=== PATIENT | female | born 1950 | race Caucasian/White ===

== ENCOUNTER 2018-02-22 16:46 | Outpatient (CLI) | payer MEDICARE, OTHER | END 2018-02-22 16:47 | disposition critical access hospital (66) | LOC: EMS 16:46 | PROVIDERS: ATTEND Surgery | DX: R51 Headache (principal) | CPT/HCPCS: A0425; A0429 ==

== ENCOUNTER 2018-02-22 17:04 | Emergency (ER) | payer MEDICARE, OTHER ==
[2018-02-22 17:53] LABS: BASOPHILS # (AUTO) 0.1 10^3/uL (0.0-0.1); BASOPHILS % (AUTO) 0.8 %; EOSINOPHILS # (AUTO) 0.2 10^3/uL (0.0-0.7); EOSINOPHILS % (AUTO) 2.6 %; HGB - HEMOGLOBIN 12.7 g/dL (12.0-16.0); LYMPHOCYTES # (AUTO) 1.6 10^3/uL (1.5-3.5); LYMPHOCYTES % (AUTO) 18.8 %; MEAN CORPUSCULAR HGB CONC 32.6 g/dL (32.0-36.0); MEAN CORPUSCULAR VOLUME 98.2 fL (81.0-99.0); MEAN PLATELET VOLUME 7.8 fL (7.9-10.8); MONOCYTES # (AUTO) 0.8 10^3/uL (0.0-1.0); MONOCYTES % (AUTO) 9.3 %; NEUTROPHILS # (AUTO) 5.8 10^3/uL (1.5-6.6); NEUTROPHILS % (AUTO) 68.5 %; PLT - PLATELET COUNT 212 10^3/uL (130-450); RED BLOOD COUNT 3.97 10^6/uL (4.20-5.40); RED CELL DISTRIBUTION WIDTH 12.7 % (12.0-15.0); WHITE BLOOD COUNT 8.4 x10^3/uL (4.8-10.8)
[2018-02-22] MEDS: diphenhydrAMINE INJ 50 MG/ML VIAL IVP STA (18:00)
[2018-02-22] MEDS: SODIUM CHLORIDE 0.9% 1,000 ML IV ONE (18:00)
[2018-02-22] MEDS: METOCLOPRAMIDE 10 MG/2 ML VIAL IVP STA (18:01)
[2018-02-22 18:02] LABS: CREATININE 0.9 mg/dL (0.4-1.0)
--- NOTE | 2018-02-22 19:10 | CT Report ---
Reason: headache Procedure Date: 02/22/2018 Accession Number: [id number] / [id number] Procedure: CT - Head W/O CPT Code: FULL RESULT: EXAM: CT HEAD EXAM DATE: 02/22/2018 06:42 PM. CLINICAL HISTORY: Headache. COMPARISON: None. TECHNIQUE: Multiaxial CT images were obtained from the foramen magnum to the vertex. Reformats: Sagittal and coronal. IV contrast: None. In accordance with CT protocol optimization, one or more of the following dose reduction techniques were utilized for this exam: automated exposure control, adjustment of mA and/or KV based on patient size, or use of iterative reconstructive technique. FINDINGS: Parenchyma: No intraparenchymal hemorrhage. No evidence of mass, midline shift, or CT findings of infarction. Mukherjee-white differentiation is distinct. Extraaxial Spaces: Normal for age. No subdural or epidural collections identified. Ventricles: Normal in size and position. Sinuses and Orbits: Imaged paranasal sinuses, orbits, and mastoids show no significant abnormality. Bones: No evidence of fracture or calvarial defect. Other: None. IMPRESSION: No acute intracranial abnormality. RADIA
[2018-02-22] MEDS: MORPHINE 2 MG/ML CARPUJECT IVP STA (19:26)
--- NOTE | 2018-02-22 20:16 | ED Physician Documentation ---
History of Present Illness - Stated complaint Stated Complaint: MIGRAINE - Chief complaint Chief Complaint: General - History obtained from History obtained from: Patient - History of Present Illness Timing: How many days ago (3), Chronic Pain level max: 8 Pain level now: 8 Quality: sharp Radiates to: no Improved by: nothing Worsened by: nothing Associated symptoms: sorethroat - Additonal information Additional information: 68-year-old female with history of headache the past 15 years and followed up by neurologist, hypertension, diabetes, pulmonary fibrosis, throat cancer treated with radiation here with complain of migraine headache and sore throat the past 3 days. Denies any fever, visual changes, nausea or vomiting. Pt stated her headache started due to stress. Her daughter wants them to move to another part of town and this is distressing her. Review of Systems Ten Systems: 10 systems reviewed and negative Constitutional: denies: Fever, Chills, Myalgias Eyes: reports: Photophobia. denies: Loss of vision, Decreased vision Ears: denies: Ear pain Nose: denies: Rhinorrhea / runny nose, Sinus pressure / pain Cardiac: denies: Chest pain / pressure Respiratory: denies: Dyspnea GI: reports: Nausea. denies: Abdominal Pain, Vomiting Skin: denies: Rash Musculoskeletal: denies: Neck pain Neurologic: reports: Headache. denies: Generalized weakness, Focal weakness, Numbness, Difficulty speaking, Near syncope, Syncope, Seizure, Confused, Altered mental status, Head injury, LOC PD PAST MEDICAL HISTORY - Past Medical History Cardiovascular: Hypertension, High cholesterol Respiratory: COPD Neuro: Dementia Endocrine/Autoimmune: HyPOthyroidism Psych: Anxiety Other Past Medical History: Throat Cancer - Past Surgical History General: Appendectomy HEENT: Tonsil/Adenoidectomy - Present Medications Home Medications: Ambulatory Orders Medication Instructions Recorded Confirmed Acetaminophen 02/22/18 Albuterol Sulf [Ventolin Hfa 02/22/18 Inhaler] Buspirone HCl 02/22/18 Carboxymethylcellulose Sodium 02/22/18 [Refresh Tears] Diphenhydramine HCl [Allergy 02/22/18 Medication] Ferrous Sulfate 02/22/18 Fluticasone 44 Mcg [Flovent] 02/22/18 Haloperidol 02/22/18 Hydrocodone/Acetaminophen 1 - 2 each PO Q6H PRN #7 tablet 02/22/18 [Hydrocodon-Acetaminophen 5-325] Isosorbide Dinitrate 02/22/18 LORazepam [Ativan] 02/22/18 Levothyroxine Sodium [Synthroid] 02/22/18 Metoprolol Succinate [Toprol Xl] 02/22/18 Mirtazapine 02/22/18 Nicotine [Nicotine Patch] 02/22/18 Nitroglycerin 02/22/18 Ondansetron [Ondansetron Odt] 02/22/18 Pantoprazole [Protonix] 02/22/18 Pravastatin Sodium [Pravachol] 02/22/18 Risperidone [Risperdal] 02/22/18 Spironolactone 02/22/18 Thiamine [Vitamin B-1] 02/22/18 Topiramate [Topamax] 02/22/18 Verapamil HCl [Calan] 02/22/18 metFORMIN [Glucophage] 02/22/18 raNITIdine [Zantac] 02/22/18 - Allergies Allergies/Adverse Reactions: Allergies Allergy/AdvReac Type Severity Reaction Status Date / Time phenylalanine Allergy Anaphylaxis Verified 02/22/18 17:18 - Social History Does the pt smoke?: No Smoking Status: Never smoker Does the pt drink ETOH?: No Does the pt have substance abuse?: No - Immunizations Immunizations are current?: Yes PD ED PE NORMAL - Vitals Vital signs reviewed: Yes - General General: Alert and oriented X 3, No acute distress, Well developed/nourished - HEENT HEENT: Atraumatic, PERRL, EOMI, Moist mucous membranes, Pharynx benign - Neck Neck: Supple, no meningeal sign - Cardiac Cardiac: RRR, No murmur - Respiratory Respiratory: No respiratory distress, Clear bilaterally - Abdomen Abdomen: Normal bowel sounds, Soft, Non tender, Non distended - Back Back: No CVA TTP - Derm Derm: Normal color, Warm and dry - Extremities Extremities: No deformity - Neuro Neuro: Alert and oriented X 3, 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, No motor deficit, No sensory deficit, Normal speech - Psych Psych: Normal mood, Normal affect Results - Vitals Vitals: Vital Signs - 24 hr 02/22/18 02/22/18 17:06 19:12 Temperature 37.3 C Heart Rate 94 77 Respiratory 18 18 Rate Blood Pressure 100/78 112/72 O2 Saturation 94 95 Oxygen O2 Source Room air - Labs Labs: Laboratory Tests 02/22/18 02/22/18 17:47 17:47 WBC 8.4 RBC 3.97 L Hgb 12.7 Hct 39.0 MCV 98.2 MCH 32.0 H MCHC 32.6 RDW 12.7 Plt Count 212 MPV 7.8 L Neut # (Auto) 5.8 Lymph # (Auto) 1.6 [place] # (Auto) 0.8 Eos # (Auto) 0.2 Baso # (Auto) 0.1 Absolute Nucleated RBC 0.00 Nucleated RBC % 0.0 Sodium 136 Potassium 3.4 L Chloride 98 L Carbon Dioxide 32 Anion Gap 6.0 BUN 13 Creatinine 0.9 Estimated GFR (MDRD) 62 L Glucose 100 Calcium 9.0 PD MEDICAL DECISION MAKING - ED course Complexity details: reviewed results (2011), re-evaluated patient ([id number] requesting for morphine for her pain. She has agreed to wait for the CT brain scan result.), considered differential (Migraine headache, intracranial bleed, CVA, intracranial mass, throat cancer, pharyngitis), d/w patient (2011Patient sitting up in the chair and stated her headache and throat pain is gone and wants to go home with pain medication. She stated that she cannot take NSAIDS due to her stomach issues. She stated that because of the move that she will had to find new primary doctor and oncology.) Departure - Departure Disposition: 01 Home, Self Care Clinical Impression: Throat pain in adult Headache Qualifiers: Headache type: tension-type Headache chronicity pattern: chronic headache Intractability: not intractable Qualified Code(s): G44.229 - Chronic tension- type headache, not intractable Instructions: ED Cephalgia Unspecified Prescriptions: Hydrocodone/Acetaminophen [Hydrocodon-Acetaminophen 5-325] 1 - 2 each PO Q6H PRN #7 tablet PRN Reason: pain Comments: Follow-up with your new primary doctor, neurologist and oncology. Maintain safety while taking narcotic pain medication. Prevent constipation by drinking lots of water and taking [id number] stool softener. If worse return to the emergency room.
[2018-02-22 21:22] VITALS: BP 115/70
== END 2018-02-22 20:18 | disposition home or self-care (01) ==
LOC: ED 17:04
DX: G44.229 Chronic tension-type headache, not intractable (principal); R07.0 Pain in throat; E11.9 Type 2 diabetes mellitus without complications; Z79.84 Long term (current) use of oral hypoglycemic drugs; Z92.3 Personal history of irradiation; C14.0 Malignant neoplasm of pharynx, unspecified; I10 Essential (primary) hypertension; J84.10 Pulmonary fibrosis, unspecified; F03.90 Unspecified dementia, unspecified severity, without behavioral disturbance, psychotic disturbance, mood disturbance, and anxiety; E03.9 Hypothyroidism, unspecified
CPT/HCPCS: 36415; 70450; 80048; 85025; 96361; 96374; 96375; 99283

== ENCOUNTER 2018-04-23 08:00 | Outpatient (CLI) | payer MEDICARE, OTHER | END 2018-04-23 23:59 | disposition home or self-care (01) | LOC: LAB.R 08:00 | PROVIDERS: ATTEND Internal Medicine | DX: J02.9 Acute pharyngitis, unspecified (principal) | CPT/HCPCS: 87070; 87430 ==

== ENCOUNTER 2018-06-18 13:31 | Outpatient (CLI) | payer MEDICARE, OTHER | END 2018-06-18 13:32 | disposition critical access hospital (66) | LOC: EMS 13:31 | PROVIDERS: ATTEND Surgery | DX: R07.0 Pain in throat (principal) | CPT/HCPCS: A0425; A0429 ==

== ENCOUNTER 2018-06-18 13:48 | Emergency (ER) | payer MEDICARE, OTHER ==
--- NOTE | 2018-06-18 13:52 | ED Physician Documentation ---
PD HPI URI - Stated complaint Stated Complaint: THROAT PX - History obtained from History obtained from: Patient - History of Present Illness Timing - onset: How many days ago (1-2) Timing duration: Days Timing details: Abrupt onset, Still present Associated symptoms: Sore throat (history of throat cancer and has pain usually but is much worse the past 2 days without any spitting blood. No fever.), Swollen nodes. No: Fever, Nasal congestion, Rhinorrhea, Dry cough, NVD Similar symptoms before: Has not had sx before Review of Systems Constitutional: reports: Myalgias. denies: Fever Nose: denies: Rhinorrhea / runny nose, Congestion Throat: reports: Sore throat Respiratory: denies: Cough GI: denies: Nausea, Vomiting, Diarrhea Skin: denies: Rash PD PAST MEDICAL HISTORY - Past Medical History Cardiovascular: Hypertension, High cholesterol Respiratory: COPD Neuro: Dementia Endocrine/Autoimmune: HyPOthyroidism Psych: Anxiety - Past Surgical History General: Appendectomy HEENT: Tonsil/Adenoidectomy - Present Medications Home Medications: Ambulatory Orders Medication Instructions Recorded Confirmed Acetaminophen 02/22/18 Albuterol Sulf [Ventolin Hfa 02/22/18 Inhaler] Buspirone HCl 02/22/18 Carboxymethylcellulose Sodium 02/22/18 [Refresh Tears] Diphenhydramine HCl [Allergy 02/22/18 Medication] Ferrous Sulfate 02/22/18 Fluticasone 44 Mcg [Flovent] 02/22/18 Haloperidol 02/22/18 Hydrocodone/Acetaminophen 1 - 2 each PO Q6H PRN #7 tablet 02/22/18 [Hydrocodon-Acetaminophen 5-325] Isosorbide Dinitrate 02/22/18 LORazepam [Ativan] 02/22/18 Levothyroxine Sodium [Synthroid] 02/22/18 Metoprolol Succinate [Toprol Xl] 02/22/18 Mirtazapine 02/22/18 Nicotine [Nicotine Patch] 02/22/18 Nitroglycerin 02/22/18 Ondansetron [Ondansetron Odt] 02/22/18 Pantoprazole [Protonix] 02/22/18 Pravastatin Sodium [Pravachol] 02/22/18 Risperidone [Risperdal] 02/22/18 Spironolactone 02/22/18 Thiamine [Vitamin B-1] 02/22/18 Topiramate [Topamax] 02/22/18 Verapamil HCl [Calan] 02/22/18 metFORMIN [Glucophage] 02/22/18 raNITIdine [Zantac] 02/22/18 Cephalexin [Keflex] 500 mg PO Q6H #20 capsule 06/18/18 Dexamethasone [Decadron] 4 mg PO DAILY #5 tablet 06/18/18 Hydrocodone/Acetaminophen [[place] 1 each PO Q6H PRN #15 tablet 06/18/18 5-325 Tablet] - Allergies Allergies/Adverse Reactions: Allergies Allergy/AdvReac Type Severity Reaction Status Date / Time atorvastatin Allergy Unknown Verified 06/18/18 14:59 azithromycin Allergy Unknown Verified 06/18/18 14:59 doxycycline Allergy Unknown Verified 06/18/18 14:59 phenylalanine Allergy Anaphylaxis Verified 06/18/18 13:53 tolmetin Allergy Unknown Verified 06/18/18 14:59 - Social History Does the pt smoke?: No Smoking Status: Never smoker Does the pt drink ETOH?: No Does the pt have substance abuse?: No - Immunizations Immunizations are current?: Yes PD ED PE NORMAL - Vitals Vital signs reviewed: Yes - General General: Alert and oriented X 3, No acute distress, Well developed/nourished - HEENT HEENT: Pharynx benign (visible oropharynx appears okay. ) - Neck Neck: Supple, no meningeal sign, Other (mild anterior tender adenopathy. ) - Cardiac Cardiac: RRR, No murmur - Respiratory Respiratory: Clear bilaterally - Abdomen Abdomen: Soft, Non tender - Derm Derm: Normal color, Warm and dry, No rash Results - Vitals Vitals: Oxygen O2 Source Nasal cannula Oxygen Flow Rate 2.5 PD MEDICAL DECISION MAKING - ED course Complexity details: considered differential ([place] throat cancer with pain usually, now worse - presume infection. Visible oropharynx appears okay.), d/w patient Departure - Departure Disposition: 01 Home, Self Care Clinical Impression: Throat pain Condition: Stable Record reviewed to determine appropriate education?: Yes Prescriptions: Cephalexin [Keflex] 500 mg PO Q6H #20 capsule Dexamethasone [Decadron] 4 mg PO DAILY #5 tablet Hydrocodone/Acetaminophen [[place] 5-325 Tablet] 1 each PO Q6H PRN #15 tablet PRN Reason: Pain Comments: You can use some Aleve twice daily for the pain. Add Tylenol or hydrocodone if needed for pain. Drink lots of fluids. An increase in your usual throat pain may suggest some inflammation or potential infection so I would also treat with Decadron steroid for several days and cephalexin antibiotic as directed as well. Recheck if not improving to your normal level of pain/discomfort over the next few days. Discharge Date/Time: 06/18/18 17:42
[2018-06-18] MEDS ORDERED: cephALEXin 250 MG CAPSULE PO STA (14:22)
[2018-06-18] MEDS ORDERED: DEXAMETHASONE 10 MG/ML VIAL PO STA (14:22)
[2018-06-18] MEDS ORDERED: HYDROcod/ACETAM 5/325 MG TABLET PO STA (14:22)
[2018-06-18 17:37] VITALS: BP 135/75
== END 2018-06-18 17:42 | disposition home or self-care (01) ==
LOC: ED 13:48
DX: R07.0 Pain in throat (principal); I10 Essential (primary) hypertension; E78.00 Pure hypercholesterolemia, unspecified; F03.90 Unspecified dementia, unspecified severity, without behavioral disturbance, psychotic disturbance, mood disturbance, and anxiety; E03.9 Hypothyroidism, unspecified; Z85.89 Personal history of malignant neoplasm of other organs and systems
CPT/HCPCS: 99283; A9270

== ENCOUNTER 2018-07-09 01:01 | Outpatient (CLI) | payer MEDICARE, OTHER | END 2018-07-09 01:02 | disposition critical access hospital (66) | LOC: EMS 01:01 | PROVIDERS: ATTEND Surgery | DX: R06.00 Dyspnea, unspecified (principal); R41.82 Altered mental status, unspecified | CPT/HCPCS: A0425; A0427 ==

== ENCOUNTER 2018-07-09 01:16 | Inpatient (IN) | payer MEDICARE, OTHER ==
--- NOTE | 2018-07-09 01:16 | ED Physician Documentation ---
PD HPI DYSPNEA - Stated complaint Stated Complaint: SOA/COPD - History obtained from History obtained from: EMS - History of Present Illness Timing - onset: Enter time (23:00) Timing - onset during: Rest Timing - duration: Hours Improved by: O2, Inhaler/neb - Additional information Additional information: Patient cannot contribute to HPI/ROS due to AMS. DALE from [facility] ([place] in [place]). Per medic report, staff noted patient was dyspneic at approximately 11 PM and eventually became severe enough to prompt staff to call 911. On medics' arrival to scene, they found patient in severe respiratory distress with room air pulse ox in mid/upper 60s. Medic asked patient if she wanted to be intubated and she indicated that she did not want to be intubated. En route, patient exhibited increased work of breathing, was diaphoretic and becoming less responsive and thus medic again asked her if she wanted to "let us do the breathing for you" (per medic) and she indicated in the affirmative. However, it was at this time that the medic noted her POLST form indicates "limited interventions", which includes no intubation or mechanical ventilation, and after d/w medic control, decision was made to not intubate the patient. Of note, POLST form also indicates that she desires CPR in the event of "has no pulse and is not breathing" (the "limited interventions" box on POLST form is for when "person has pulse and/or is breathing"). Given duoneb and then albuterol neb en route; with these interventions, and 10 liters/min oxygen via NRB, her pulse ox has improved to mid/upper 90s. However, on ED arrival, she is minimally responsive; makes weak attempt to squeeze my fingers when instructed to do so, but follows no other commands and is nonverba Review of Systems Unable to obtain: Unresponsive PD PAST MEDICAL HISTORY - Past Medical History Past Medical History: Yes Cardiovascular: Hypertension, Coronary artery disease Respiratory: COPD, Other (pulmonary fibrosis) Neuro: Seizure disorder (laryngeal CA) Endocrine/Autoimmune: Type 2 diabetes GI: GERD HEENT: Other (laryngeal CA) - Present Medications Home Medications: Ambulatory Orders Medication Instructions Recorded Confirmed Acetaminophen 02/22/18 Albuterol Sulf [Ventolin Hfa 02/22/18 Inhaler] Buspirone HCl 02/22/18 Carboxymethylcellulose Sodium 1 drops QID PRN 02/22/18 [Refresh Tears] Diphenhydramine HCl [Allergy 02/22/18 Medication] Ferrous Sulfate 02/22/18 Fluticasone 44 Mcg [Flovent] 2 puffs INH BID 02/22/18 Haloperidol 1 tab PO QPM 02/22/18 Hydrocodone/Acetaminophen 1 - 2 each PO Q6H PRN #7 tablet 02/22/18 [Hydrocodon-Acetaminophen 5-325] Isosorbide Dinitrate 2 tab PO DAILY 02/22/18 LORazepam [Ativan] 02/22/18 Levothyroxine Sodium [Synthroid] 1 tab PO QDBREAKFAST 02/22/18 Metoprolol Succinate [Toprol Xl] 1 tab PO DAILY 02/22/18 Mirtazapine 1 tab PO QPM 02/22/18 Nicotine [Nicotine Patch] 02/22/18 Nitroglycerin SL 02/22/18 Ondansetron [Ondansetron Odt] 1 tab SL TID PRN 02/22/18 Pantoprazole [Protonix] 1 tab PO DAILY 02/22/18 Pravastatin Sodium [Pravachol] 1 tab PO QPM 02/22/18 Risperidone [Risperdal] 1 tab PO BID PRN 02/22/18 Spironolactone 1 tab PO DAILY 02/22/18 Thiamine [Vitamin B-1] 1 tab PO DAILY 02/22/18 Topiramate [Topamax] 1 tab PO BID 02/22/18 Verapamil HCl [Calan] 1 tab PO TID 02/22/18 metFORMIN [Glucophage] 1 tab PO BIDWM 02/22/18 raNITIdine [Zantac] PO QPM 02/22/18 Cephalexin [Keflex] 500 mg PO Q6H #20 capsule 06/18/18 Dexamethasone [Decadron] 4 mg PO DAILY #5 tablet 06/18/18 Hydrocodone/Acetaminophen [[place] 1 each PO Q6H PRN #15 tablet 06/18/18 5-325 Tablet] Buprenorphine HCl 2 tab SL DAILY 07/09/18 Ipratropium/Albuterol [Combivent 1 puffs INH QID PRN 07/09/18 Respimat] - Allergies Allergies/Adverse Reactions: Allergies Allergy/AdvReac Type Severity Reaction Status Date / Time atorvastatin Allergy Unknown Verified 07/09/18 02:33 azithromycin Allergy Unknown Verified 07/09/18 02:33 doxycycline Allergy Unknown Verified 07/09/18 02:33 phenylalanine Allergy Anaphylaxis Verified 07/09/18 02:33 tolmetin Allergy Unknown Verified 07/09/18 02:33 - Living Situation Living Arrangement: reports: senior living - POLST Patient has POLST: Yes POLST Status: see HPI PD ED PE NORMAL - Vitals Vital signs reviewed: Yes - General General: Well developed/nourished, Other (diaphoretic, pale, tachypneic. no intentional gaze. weak attempt to chef passenger vessel my fingers when instructed to do so, but follows no other commands. nonverbal (appears to make weak attempt to answer when I ask her what her name is)) - HEENT HEENT: Atraumatic, PERRL, Other (dry mucous membranes) - Abdomen Abdomen: Soft, Non tender, Non distended - Extremities Extremities: No edema PD ED PE EXPANDED - Cardiac Cardiac: Tachy, Regular Rhythm - Respiratory Respiratory: Distress, Labored, Rales (bilateral bases), Decreased breath sounds (poor air movement bilaterally) - Derm Derm: Pale, Diaphoretic - GCS Eye Opening: Spontaneous Motor: Withdraws to Pain Verbal: None Total: 9 Results - Vitals Vitals: Vital Signs - 24 hr 07/09/18 07/09/18 07/09/18 01:18 01:20 01:26 Temperature 36.9 C 36.8 C Heart Rate 118 H 111 H 112 H Respiratory 30 H 18 Rate Blood Pressure 150/87 H 129/73 O2 Saturation 100 100 100 07/09/18 07/09/18 07/09/18 01:41 01:49 01:56 Temperature Heart Rate 110 H 109 H 109 H Respiratory 18 19 Rate Blood Pressure 120/79 123/85 H O2 Saturation 100 100 07/09/18 07/09/18 07/09/18 02:18 02:31 02:38 Temperature 36.8 C Heart Rate 105 H 107 H 102 H Respiratory 16 16 16 Rate Blood Pressure 123/85 H 132/74 H 132/74 H O2 Saturation 100 100 100 07/09/18 07/09/18 07/09/18 02:50 03:10 03:22 Temperature Heart Rate 147 H 110 H 109 H Respiratory 19 17 14 Rate Blood Pressure 132/74 H 126/75 140/84 H O2 Saturation 100 100 100 07/09/18 07/09/18 07/09/18 03:30 03:46 03:52 Temperature Heart Rate 107 H 108 H 137 H Respiratory 14 14 Rate Blood Pressure 126/75 126/75 O2 Saturation 100 100 07/09/18 07/09/18 07/09/18 04:00 04:22 04:42 Temperature 36.9 C Heart Rate 108 H 109 H 104 H Respiratory 15 15 15 Rate Blood Pressure 144/91 H 109/71 122/72 O2 Saturation 100 100 100 07/09/18 07/09/18 04:57 05:06 Temperature 37.1 C Heart Rate 118 H 120 H Respiratory 19 31 H Rate Blood Pressure 121/72 139/87 H O2 Saturation 100 100 Oxygen O2 Source BIPAP - EKG (time done) No standard instances Rate: Rate (enter#) (110) Rhythm: Sinus tachycardia, LAE, PUSHPA Landers: LAD, Anterior hemiblock Intervals: Normal [place] QRS: LVH Other comments: Other comments (PVCs) - Labs Labs: Microbiology 07/09/18 02:00 Urine Culture - Preliminary Urine,Catheterized CULTURE IN PROGRESS. RESULTS TO FOLLOW. Laboratory Tests 07/09/18 07/09/18 07/09/18 01:40 01:40 01:40 WBC 14.5 H RBC 4.60 Hgb 14.4 Hct 45.1 MCV 98.0 MCH 31.3 H MCHC 31.9 L RDW 13.7 Plt Count 327 MPV 8.2 Neut # (Auto) 12.3 H Lymph # (Auto) 1.4 L Ralls # (Auto) 0.7 Eos # (Auto) 0.0 Baso # (Auto) 0.1 Absolute Nucleated RBC 0.01 Nucleated RBC % 0.0 PT INR APTT Bld Gas Analysis Time Sample Site ABG pH ABG pCO2 ABG pO2 ABG HCO3 ABG Total CO2 ABG O2 Saturation ABG Base Excess Zia Test Respiration Rate O2 Delivery Device Vent Mode FiO2 PEEP Pressure Support Vent EPAP IPAP Sodium 138 Potassium 3.6 Chloride 97 L Carbon Dioxide 33 H Anion Gap 8.0 BUN 20 Creatinine 0.7 Estimated GFR (MDRD) 83 L Glucose 181 H Lactic Acid Calcium 9.5 Phosphorus Magnesium Troponin I < 0.04 B-Natriuretic Peptide Urine Color Urine Clarity Urine pH Ur Specific Vida Urine Protein Urine Glucose (UA) Urine Ketones Urine Occult Blood Urine Nitrite Urine Bilirubin Urine Urobilinogen Ur Leukocyte Esterase Urine RBC Urine WBC Ur Squamous Epith Cells Urine Bacteria Urine Mucus Ur Microscopic Review Urine Culture Comments Urine Opiates Screen Ur Oxycodone Screen Urine Methadone Screen Ur Propoxyphene Screen Ur Barbiturates Screen Ur Tricyclics Screen Ur Phencyclidine Scrn Ur Amphetamine Screen U Methamphetamines Scrn U Benzodiazepines Scrn Urine Cocaine Screen U Cannabinoids Screen 07/09/18 07/09/18 07/09/18 01:40 01:40 01:40 WBC RBC Hgb Hct MCV MCH MCHC RDW Plt Count MPV Neut # (Auto) Lymph # (Auto) Ralls # (Auto) Eos # (Auto) Baso # (Auto) Absolute Nucleated RBC Nucleated RBC % PT 12.1 INR 1.1 APTT 27.1 Bld Gas Analysis Time Sample Site ABG pH ABG pCO2 ABG pO2 ABG HCO3 ABG Total CO2 ABG O2 Saturation ABG Base Excess Zia Test Respiration Rate O2 Delivery Device Vent Mode FiO2 PEEP Pressure Support Vent EPAP IPAP Sodium Potassium Chloride Carbon Dioxide Anion Gap BUN Creatinine Estimated GFR (MDRD) Glucose Lactic Acid Calcium Phosphorus 4.9 H Magnesium 2.2 Troponin I B-Natriuretic Peptide 142 H Urine Color Urine Clarity Urine pH Ur Specific [place]ida Urine Protein Urine Glucose (UA) Urine Ketones Urine Occult Blood Urine Nitrite Urine Bilirubin Urine Urobilinogen Ur Leukocyte Esterase Urine RBC Urine WBC Ur Squamous Epith Cells Urine Bacteria Urine Mucus Ur Microscopic Review Urine Culture Comments Urine Opiates Screen Ur Oxycodone Screen Urine Methadone Screen Ur Propoxyphene Screen Ur Barbiturates Screen Ur Tricyclics Screen Ur Phencyclidine Scrn Ur Amphetamine Screen U Methamphetamines Scrn U Benzodiazepines Scrn Urine Cocaine Screen U Cannabinoids Screen 07/09/18 07/09/18 07/09/18 01:47 02:00 02:00 WBC RBC Hgb Hct MCV MCH MCHC RDW Plt Count MPV Neut # (Auto) Lymph # (Auto) Ralls # (Auto) Eos # (Auto) Baso # (Auto) Absolute Nucleated RBC Nucleated RBC % PT INR APTT Bld Gas Analysis Time Sample Site ABG pH ABG pCO2 ABG pO2 ABG HCO3 ABG Total CO2 ABG O2 Saturation ABG Base Excess Zia Test Respiration Rate O2 Delivery Device Vent Mode FiO2 PEEP Pressure Support Vent EPAP IPAP Sodium Potassium Chloride Carbon Dioxide Anion Gap BUN Creatinine Estimated GFR (MDRD) Glucose Lactic Acid 1.3 Calcium Phosphorus Magnesium Troponin I B-Natriuretic Peptide Urine Color YELLOW Urine Clarity CLEAR Urine pH 5.5 Ur Specific Vida >=1.030 H Urine Protein 100 H Urine Glucose (UA) NEGATIVE Urine Ketones TRACE Urine Occult Blood NEGATIVE Urine Nitrite NEGATIVE Urine Bilirubin NEGATIVE Urine Urobilinogen 0.2 (NORMAL) Ur Leukocyte Esterase NEGATIVE Urine RBC 0-5 Urine WBC 0-3 Ur Squamous Epith Cells RARE Squamous Urine Bacteria Moderate H Urine Mucus Moderate Strands Ur Microscopic Review INDICATED Urine Culture Comments INDICATED Urine Opiates Screen POSITIVE H Ur Oxycodone Screen NEGATIVE Urine Methadone Screen NEGATIVE Ur Propoxyphene Screen NEGATIVE Ur Barbiturates Screen NEGATIVE Ur Tricyclics Screen NEGATIVE Ur Phencyclidine Scrn NEGATIVE Ur Amphetamine Screen NEGATIVE U Methamphetamines Scrn NEGATIVE U Benzodiazepines Scrn NEGATIVE Urine Cocaine Screen NEGATIVE U Cannabinoids Screen NEGATIVE 07/09/18 05:05 WBC RBC Hgb Hct MCV MCH MCHC RDW Plt Count MPV Neut # (Auto) Lymph # (Auto) Ralls # (Auto) Eos # (Auto) Baso # (Auto) Absolute Nucleated RBC Nucleated RBC % PT INR APTT Bld Gas Analysis Time 0505 Sample Site RIGHT RADIAL ABG pH 7.17 L* ABG pCO2 94 H* ABG pO2 242 H* ABG HCO3 33.4 H ABG Total CO2 36.3 H ABG O2 Saturation 100 H ABG Base Excess 1.3 Zia Test POSITIVE Respiration Rate 12 O2 Delivery Device BiPAP Vent Mode SYNCHRONOUS/TIMES FiO2 60.00 PEEP 6 Pressure Support Vent 6 EPAP 6 IPAP 12 Sodium Potassium Chloride Carbon Dioxide Anion Gap BUN Creatinine Estimated GFR (MDRD) Glucose Lactic Acid Calcium Phosphorus Magnesium Troponin I B-Natriuretic Peptide Urine Color Urine Clarity Urine pH Ur Specific [place] Urine Protein Urine Glucose (UA) Urine Ketones Urine Occult Blood Urine Nitrite Urine Bilirubin Urine Urobilinogen Ur Leukocyte Esterase Urine RBC Urine WBC Ur Squamous Epith Cells Urine Bacteria Urine Mucus Ur Microscopic Review Urine Culture Comments Urine Opiates Screen Ur Oxycodone Screen Urine Methadone Screen Ur Propoxyphene Screen Ur Barbiturates Screen Ur Tricyclics Screen Ur Phencyclidine Scrn Ur Amphetamine Screen U Methamphetamines Scrn U Benzodiazepines Scrn Urine Cocaine Screen U Cannabinoids Screen - Rads (name of study) chest xray Radiology: Prelim report reviewed, See rad report CT head Radiology: Prelim report reviewed, See rad report PD MEDICAL DECISION MAKING - ED course Complexity details: reviewed old records, reviewed results, re-evaluated patient, considered differential ED course: Respiratory status improved considerably with bipap. However, she remained minimally responsive. She had slight improvement with narcan 0.4mg IV x 2 doses. Departure - Departure Disposition: 66 [facility] DC/Xfer Clinical Impression: Altered mental status Qualifiers: Altered mental status type: unspecified Qualified Code(s): R41.82 - Altered mental status, unspecified Dyspnea Qualifiers: Dyspnea type: acute respiratory distress Qualified Code(s): R06.03 - Acute respiratory distress Condition: Stable Discharge Date/Time: 07/09/18 06:12
[2018-07-09] MEDS ORDERED: FUROSEMIDE 40 MG/4 ML VIAL IVP STA (01:28)
[2018-07-09] MEDS ORDERED: DEXAMETHASONE 10 MG/ML VIAL IVP STA (01:28)
--- NOTE | 2018-07-09 01:45 | XRAY Report ---
Reason: dyspnea Procedure Date: 07/09/2018 Accession Number: [id number] / [id number] Procedure: XR - Chest 1 View X-Ray CPT Code: 60112 FULL RESULT: EXAM: CHEST RADIOGRAPHY EXAM DATE: 07/09/2018 01:40 AM. CLINICAL HISTORY: Dyspnea. COMPARISON: None. TECHNIQUE: 1 view. FINDINGS: Lungs/Pleura: Large volumes. Diffuse mild interstitial opacities. No large effusion. No gross pneumothorax. Mediastinum: No significant cardiomegaly. No mediastinal shift. Other: None. IMPRESSION: Possible minimal fluid overload/CHF superimposed upon COPD. RADIA
[2018-07-09 01:55] LABS: BASOPHILS # (AUTO) 0.1 10^3/uL (0.0-0.1); BASOPHILS % (AUTO) 0.8 %; EOSINOPHILS % (AUTO) 0.2 %; HGB - HEMOGLOBIN 14.4 g/dL (12.0-16.0); LYMPHOCYTES # (AUTO) 1.4 10^3/uL (1.5-3.5); LYMPHOCYTES % (AUTO) 9.8 %; MEAN CORPUSCULAR HEMOGLOBIN 31.3 pg (27.0-31.0); MEAN CORPUSCULAR HGB CONC 31.9 g/dL (32.0-36.0); MEAN PLATELET VOLUME 8.2 fL (7.9-10.8); MONOCYTES # (AUTO) 0.7 10^3/uL (0.0-1.0); MONOCYTES % (AUTO) 4.5 %; NEUTROPHILS # (AUTO) 12.3 10^3/uL (1.5-6.6); NEUTROPHILS % (AUTO) 84.7 %; PLT - PLATELET COUNT 327 10^3/uL (130-450); RED CELL DISTRIBUTION WIDTH 13.7 % (12.0-15.0); WHITE BLOOD COUNT 14.5 x10^3/uL (4.8-10.8)
[2018-07-09 02:00] LABS: INR 1.1 (0.8-1.2); PT - PROTHROMBIN TIME 12.1 secs (9.9-12.6)
[2018-07-09 02:07] LABS: PARTIAL THROMBOPLASTIN TIME 27.1 secs (24.9-33.3)
[2018-07-09 02:09] LABS: CALCIUM 9.5 mg/dL (8.5-10.3); CREATININE 0.7 mg/dL (0.4-1.0)
[2018-07-09 02:10] LABS: GLUCOSE, URINE (UA) NEGATIVE (NEGATIVE); KETONES,URINE (UA) TRACE mg/dL (NEGATIVE); LEUKOCYTE ESTERASE, URINE NEGATIVE (NEGATIVE); NITRITE,URINE NEGATIVE (NEGATIVE); OCCULT BLOOD,URINE NEGATIVE (NEGATIVE); PH,URINE 5.5 PH (5.0-7.5); PROTEIN,URINE 100 mg/dL (NEGATIVE); UROBILINOGEN,URINE 0.2 (NORMAL) E.U./dL (NORMAL)
[2018-07-09 02:13] LABS: BILIRUBIN,URINE NEGATIVE (NEGATIVE); CLARITY,URINE CLEAR (CLEAR); ICTOTEST,URINE NEGATIVE
[2018-07-09 02:21] LABS: BACTERIA,URINE Moderate /HPF (None Seen); MUCUS,URINE Moderate Strands; RBC,URINE 0-5 /HPF (0-5); SQUAMOUS EPITHELIAL CELL,UR RARE Squamous (<= Few)
--- NOTE | 2018-07-09 03:30 | CT Report ---
Reason: AMS Procedure Date: 07/09/2018 Accession Number: [id number] / [id number] Procedure: CT - HEAD WO CPT Code: FULL RESULT: EXAM: CT HEAD EXAM DATE: 07/09/2018 03:19 AM. CLINICAL HISTORY: Decreased mental status, found down COMPARISON: HEAD W/O 02/22/2018 6:26 PM. TECHNIQUE: Multiaxial CT images were obtained from the foramen magnum to the vertex. Reformats: Sagittal and coronal. IV contrast: None. In accordance with CT protocol optimization, one or more of the following dose reduction techniques were utilized for this exam: automated exposure control, adjustment of mA and/or KV based on patient size, or use of iterative reconstructive technique. FINDINGS: Parenchyma: No intraparenchymal hemorrhage. No evidence of mass, midline shift, or CT findings of infarction. Mukherjee-white differentiation is distinct. Extraaxial Spaces: Normal for age. No subdural or epidural collections identified. Ventricles: Normal in size and position. Sinuses and Orbits: Imaged paranasal sinuses, orbits, and mastoids show no significant abnormality. Bones: No evidence of fracture or calvarial defect. Other: None. IMPRESSION: Normal head CT. RADIA
[2018-07-09] MEDS ORDERED: NALOXONE 0.4 MG/ML VIAL IVP STA ×2 (04:48→05:01)
[2018-07-09 04:49] LABS: MUDS CUTOFF CONCENTRATIONS CUTOFF CONC BELOW:
[2018-07-09 04:59] LABS: AMPHETAMINE SCREEN,URINE NEGATIVE (NEGATIVE); BENZODIAZEPINES SCREEN, URINE NEGATIVE (NEGATIVE); COCAINE SCREEN URINE NEGATIVE (NEGATIVE); METHADONE SCREEN, URINE NEGATIVE (NEGATIVE); METHAMPHETAMINES SCREEN, URINE NEGATIVE (NEGATIVE); OPIATE SCREEN, URINE POSITIVE (NEGATIVE); OXYCODONE SCREEN, URINE NEGATIVE (NEGATIVE); PROPOXYPHENE SCREEN, URINE NEGATIVE (NEGATIVE); TRICYCLIC ANTIDEPRESSANT,URINE NEGATIVE (NEGATIVE)
[2018-07-09] MEDS ORDERED: LEVALBUTEROL 1.25 MG/3 ML NEB INH PRN (05:40)
[2018-07-09 05:55] LABS: MAGNESIUM 2.2 mg/dL (1.7-2.8); PHOSPHORUS 4.9 mg/dL (2.5-4.6)
[2018-07-09] MEDS ORDERED: SODIUM CHLORIDE 0.9% 500 ML IV ONE (06:14)
[2018-07-09] MEDS ORDERED: NALOXONE 0.4 MG/1 ML 10 ML MDV IV ONE (06:16)
--- NOTE | 2018-07-09 06:28 | XRAY Report ---
Reason: dyspnea, wide neck, ?obstruction Procedure Date: 07/09/2018 Accession Number: [id number] / [id number] Procedure: XR - Neck Soft Tissue CPT Code: FULL RESULT: EXAM: SOFT TISSUE NECK RADIOGRAPHY EXAM DATE: 07/09/2018 06:20 AM. CLINICAL HISTORY: Dyspnea, wide neck, ?obstruction. COMPARISONS: None. TECHNIQUE: 2 views. FINDINGS: Soft Tissues: The subcutaneous soft tissues of the neck are extensive. The deep tissues, however, are unremarkable. There is no precervical soft tissue thickening. The epiglottis is normal. The airways are clear. Regional Skeleton: There are prominent marginal osteophytes involving the cervical spine. Other: The visualized lung apices are clear. IMPRESSION: 1. No obstruction of the airways. No evidence for epiglottitis. RADIA
[2018-07-09] MEDS: NALOXONE 2 MG in SODIUM CHLORIDE 0.9% 495 ML IV SCH ×8 (06:38→14:22)
[2018-07-09 06:53] LABS: ABG BASE EXCESS 1.3 mmol/L (-2.0-3.0); ABG HCO3 33.4 mmol/L (22.0-26.0); ABG OXYGEN SATURATION 100 % (94-98); ABG TCO2 36.3 MMOL/L (21.0-29.0); ALLEN TEST POSITIVE
--- NOTE | 2018-07-09 06:55 | HISTORY & PHYSICAL EXAMINATION ---
Chief Complaint - Chief Complaint Chief Complaint: unresponsive History of Present Illness - Admitted From Admitted From:: [facility] ED - History Obtained From Records Reviewed: yes History obtained from: ED physician Exam Limitations: unresponsiveness - History of Present Illness HPI Comment/Other: Patient is a 68 y/o female who was brought to the ED from the [facility]. It was reported that she was found hypoxic and unresponsive by staff there with an O2Sat of 70%. 2 hours later EMS was called. Upon their arrival she was found to have an O2Sat of 60%. Upon arrival patient was unresponsive so she was immediately placed on bipap. Here extremities were cold to touch and appeared cyanotic. Her O2Sat improved to 100% Patient's pupils were pin point and there was minimal response to tactile or verbal stimuli. She also had intermittent runs of VTach She had a POLST form which stated Limited resuscitation with CPR but no intubation. She had a narcan trial. He respiratory rate increased to the 30's and her pupils were more reactive to light. With a repeat of narcan, she was moving her arm and could turn her head towards a verbal stimuli. A urine drug screen done was positive for opiates. An ABG done showed a pH of 7.1 and pCO2 of 94. Patient has a history of laryngeal cancer, pulmonary fibrosis, COPD, CAD, DM2, hypothyroidism, dysphagia, seizures, hypertension, chronic back pain, anxiety, osteoporosis, lumbar radiculopathy, GERD and cystocele He daughter Portia Keller was contacted before lab results were back and she strongly cautioned against giving her any pain medication. She reported that the patients has a history of opiate dependence and uses laryngeal cancer diagnoses as an excuse and attempt to get pain medications from prescribers History - Past Medical History Cardiovascular: reports: Hypertension, High cholesterol Respiratory: reports: COPD Neuro: reports: Dementia Endocrine/Autoimmune: reports: HyPOthyroidism Psych: reports: Anxiety - Past Surgical History General: reports: Appendectomy HEENT: reports: Tonsil/Adenoidectomy - POLST Patient has POLST: Yes Meds/Allgy - Home Medications Home Medications: Ambulatory Orders Medication Instructions Recorded Confirmed Acetaminophen 02/22/18 Albuterol Sulf [Ventolin Hfa 02/22/18 Inhaler] Buspirone HCl 02/22/18 Carboxymethylcellulose Sodium 1 drops QID PRN 02/22/18 [Refresh Tears] Diphenhydramine HCl [Allergy 02/22/18 Medication] Ferrous Sulfate 02/22/18 Fluticasone 44 Mcg [Flovent] 2 puffs INH BID 02/22/18 Haloperidol 1 tab PO QPM 02/22/18 Hydrocodone/Acetaminophen 1 - 2 each PO Q6H PRN #7 tablet 02/22/18 [Hydrocodon-Acetaminophen 5-325] Isosorbide Dinitrate 2 tab PO DAILY 02/22/18 LORazepam [Ativan] 02/22/18 Levothyroxine Sodium [Synthroid] 1 tab PO QDBREAKFAST 02/22/18 Metoprolol Succinate [Toprol Xl] 1 tab PO DAILY 02/22/18 Mirtazapine 1 tab PO QPM 02/22/18 Nicotine [Nicotine Patch] 02/22/18 Nitroglycerin SL 02/22/18 Ondansetron [Ondansetron Odt] 1 tab SL TID PRN 02/22/18 Pantoprazole [Protonix] 1 tab PO DAILY 02/22/18 Pravastatin Sodium [Pravachol] 1 tab PO QPM 02/22/18 Risperidone [Risperdal] 1 tab PO BID PRN 02/22/18 Spironolactone 1 tab PO DAILY 02/22/18 Thiamine [Vitamin B-1] 1 tab PO DAILY 02/22/18 Topiramate [Topamax] 1 tab PO BID 02/22/18 Verapamil HCl [Calan] 1 tab PO TID 02/22/18 metFORMIN [Glucophage] 1 tab PO BIDWM 02/22/18 raNITIdine [Zantac] PO QPM 02/22/18 Cephalexin [Keflex] 500 mg PO Q6H #20 capsule 06/18/18 Dexamethasone [Decadron] 4 mg PO DAILY #5 tablet 06/18/18 Hydrocodone/Acetaminophen [[place] 1 each PO Q6H PRN #15 tablet 06/18/18 5-325 Tablet] Buprenorphine HCl 2 tab SL DAILY 07/09/18 Ipratropium/Albuterol [Combivent 1 puffs INH QID PRN 07/09/18 Respimat] - Allergies Allergies/Adverse Reactions: Allergies Allergy/AdvReac Type Severity Reaction Status Date / Time atorvastatin Allergy Unknown Verified 07/09/18 02:33 azithromycin Allergy Unknown Verified 07/09/18 02:33 doxycycline Allergy Unknown Verified 07/09/18 02:33 phenylalanine Allergy Anaphylaxis Verified 07/09/18 02:33 tolmetin Allergy Unknown Verified 07/09/18 02:33 Review of Systems - All Other Systems All Other Systems: reports: Other (Limited ROS because patient is encephalopathic) - Other Findings Other Findings: Limited ROS due to patient's encephalopathy Exam - Vital Signs Vital Signs: Vital Signs x48h Temp Pulse Resp BP Pulse Ox 07/09/18 06:12 111 H 22 124/81 H 100 07/09/18 05:44 37.0 C 112 H 24 131/73 H 100 07/09/18 05:34 115 H 07/09/18 05:30 118 H 20 139/87 H 100 07/09/18 05:06 37.1 C 120 H 31 H 139/87 H 100 07/09/18 04:57 118 H 19 121/72 100 07/09/18 04:42 104 H 15 122/72 100 07/09/18 04:22 36.9 C 109 H 15 109/71 100 07/09/18 04:00 108 H 15 144/91 H 100 07/09/18 03:52 137 H 14 126/75 100 07/09/18 03:46 108 H 07/09/18 03:30 107 H 14 126/75 100 07/09/18 03:22 109 H 14 140/84 H 100 07/09/18 03:10 110 H 17 126/75 100 07/09/18 02:50 147 H 19 132/74 H 100 07/09/18 02:38 102 H 16 132/74 H 100 07/09/18 02:31 107 H 16 132/74 H 100 07/09/18 02:18 36.8 C 105 H 16 123/85 H 100 07/09/18 01:56 109 H 19 123/85 H 100 07/09/18 01:49 109 H 07/09/18 01:41 110 H 18 120/79 100 07/09/18 01:26 112 H 18 129/73 100 07/09/18 01:20 36.8 C 111 H 100 07/09/18 01:18 36.9 C 118 H 30 H 150/87 H 100 - Physical Exam General Appearance: positive: Other (Unresponsive) Eyes Bilateral: positive: Other (pupils pinpoint and sluggish) ENT: positive: Pharynx nml Neck: positive: No JVD, Trachea midline, Other (neck appears wide) Respiratory: positive: Rhonchi, Other (decreased breath sounds) Cardiovascular: positive: Tachycardia Abdomen: positive: Non-tender, Nml bowel sounds, No distention Skin: positive: No rash, Other (cold extremities) Extremities: positive: Non-tender Neurologic/Psychiatric: positive: Other (Patient is unresponsive due to CO2 narcosis). negative: Oriented x3 Sepsis Event Note (H) - Sepsis Criteria Sepsis Criteria: WBC count greater than 12,000 or less than 4000 Conclusion/Plan - Problem List (1) Acute respiratory failure with hypoxia and hypercapnia Conclusion/Plan: Likely 2/2 opiates abuse Patient placed on narcan gtt Patient on bipap Repeat ABG pending Xopenex ordered (2) Altered mental status Conclusion/Plan: Likely 2/2 CO2 narcosis and opiate overdose Qualifiers: Altered mental status type: unspecified Qualified Code(s): R41.82 - Altered mental status, unspecified (3) Opiate overdose Conclusion/Plan: On narcan gtt (4) Diabetes mellitus, type II Conclusion/Plan: Accu checks. SSI prn Hold metformin for now (5) Pulmonary fibrosis Conclusion/Plan: Chronic (6) COPD (chronic obstructive pulmonary disease) Conclusion/Plan: Xopenex ordered prn (8) Anxiety Conclusion/Plan: On buspirone (9) Hypertension Conclusion/Plan: On metoprolol and verapamil Will resume when verified (10) Hypothyroidism Conclusion/Plan: On levothyroid (11) Hyperlipidemia Conclusion/Plan: On pravastatin (12) GERD (gastroesophageal reflux disease) Conclusion/Plan: Will order protonix (13) Seizure Conclusion/Plan: On topamax - Lab Results Fish Bones: 07/09/18 01:40 07/09/18 01:40 Core Measures - Anticipated LOS I expect patient to be DC'd or transferred within 96 hours.: Yes - DVT/VTE - Prophylaxis VTE/DVT Device ordered at admit?: Yes
[2018-07-09 06:56] LABS: ABG PCO2 94 mmHg (34-45); ABG PH 7.17 (7.35-7.45); ABG PO2 242 mmHg (80-100)
[2018-07-09 08:01] LABS: ABG BASE EXCESS 3.1 mmol/L (-2.0-3.0); ABG HCO3 34.4 mmol/L (22.0-26.0); ABG OXYGEN SATURATION 98 % (94-98); ABG PH 7.21 (7.35-7.45); ABG PO2 111 mmHg (80-100); ABG TCO2 37.1 MMOL/L (21.0-29.0); ALLEN TEST POSITIVE
[2018-07-09 08:04] LABS: ABG PCO2 88 mmHg (34-45)
[2018-07-09] MEDS ORDERED: FUROSEMIDE 20 MG/2 ML VIAL IVP SCH (08:20)
[2018-07-09] MEDS: SODIUM CHLORIDE FLUSH 0.9% 10 ML SYRINGE IVP SCH ×2 (08:42→17:33)
[2018-07-09] MEDS ORDERED: BUPRENORPHINE 0.3 MG/ML VIAL IVP SCH (09:00)
[2018-07-09] MEDS ORDERED: BUPRENORPHINE 0.3 MG/ML AMP IVP SCH (09:00)
[2018-07-09] MEDS ORDERED: PANTOPRAZOLE 40 MG VIAL IVP SCH (09:00)
[2018-07-09] MEDS: SODIUM CHLORIDE FLUSH 0.9% 10 ML SYRINGE IVP PRN ×3 (09:09→16:31)
[2018-07-09 09:12] LABS: THYROID STIMULATING HORMONE 0.48 uIU/mL (0.34-5.60)
[2018-07-09 09:14] LABS: FREE T4 (FREE THYROXINE) 1.13 ng/dL (0.58-1.64)
--- NOTE | 2018-07-09 11:26 | MISCELLANEOUS PROVIDER NOTE ---
Miscellaneous Provider Note - - Note: HPI Comment/Other: Patient is a 68 y/o female who was brought to the ED from the [facility]. It was reported that she was found hypoxic and unresponsive by staff there with an O2Sat of 70%. 2 hours later EMS was called. Upon their arrival she was found to have an O2Sat of 60%. Upon arrival patient was unresponsive so she was immediately placed on bipap. Here extremities were cold to touch and appeared cyanotic. Her O2Sat improved to 100% Patient's pupils were pin point and there was minimal response to tactile or verbal stimuli. She also had intermittent runs of VTach She had a POLST form which stated Limited resuscitation with CPR but no in tubation. She had a narcan trial. He respiratory rate increased to the 30's and her pupils were more reactive to light. With a repeat of narcan, she was moving her arm and could turn her head towards a verbal stimuli. A urine drug screen done was positive for opiates. An ABG done showed a pH of 7.1 and pCO2 of 94. Patient has a history of laryngeal cancer, pulmonary fibrosis, COPD, CAD, DM2, hypothyroidism, dysphagia, seizures, hypertension, chronic back pain, anxiety, osteoporosis, lumbar radiculopathy, GERD and cystocele He daughter Portia Keller was contacted before lab results were back and she strongly cautioned against giving her any pain medication. She reported that the patients has a history of opiate dependence and uses laryngeal cancer diagnoses as an excuse and attempt to get pain medications from prescribers I spoke extensively to the patient's daughter who is the DPOA her name Tiffany phone number [phone] who essentially wanted patient to be DNR and then due to the fact that she has a poor prognosis from a severe CO2 narcosis with the likelihood of her having neurocognitive deficits if she comes out of her CO2 narcosis would be slim. Patient was converted to comfort care measures. Subjective: Patient currently unresponsive after given 1 dose of buprenorphine 0.3 mg at 0930 due to visible opiate withdrawals with tachycardia and tremors to bilateral upper and lower extremity after patient had confirmed that she had been on buprenorphine from [facility] unit. Patient desaturated to 87% on 30% FiO2 with a respiratory rate of 11-18 and a heart rate ranging from 110s-137 blood pressure stable. Objective: Vital signs somewhat labile heart rate with a normal blood pressure to hypertensive BPs with FiO2 increased to 40% and labored shallow breathing with RR ranging from 11-18. Heart rate ranging from 110s to 137 bpm. HEENT: Pinpoint pupils NCAT. Patient is mouth breathing at this time. Neck: No JVD no bruits no lymphadenopathy chest CV lungs S1-S2 within normal limits, tachycardia, no gallops clicks or rubs. Decreased breath sounds bibasilarly with no rales or rhonchi no wheezing no increased work of breath shallow breathing noted. Abdomen: Soft nontender nondistended positive bowel sounds all quadrants NX Extremities/skin: No edema clubbing or cyanosis Neuro: Patient is obtunded secondary to respiratory failure from obvious opiate overdose. Labs: Reviewed next Imaging studies: Reviewed next Assessment/plan: (1) Acute respiratory failure with hypoxia and hypercapnia Conclusion/Plan: Patient likely was on buprenorphine and was opiate tolerant with underlying opiate use disorder. Was given an additional IV buprenorphine 0.3 mg as she was withdrawing and currently had improvement to pH as well as PCO2 levels however is currently unresponsive due to likely IV buprenorphine being administered for withdrawals. Will continue on Narcan drip which is currently maxed dosage at this point with serial ABGs Xopenex as ordered and BiPAP as patient has limited CODE STATUS with BiPAP only with no intubation. PH is 7.048 with a PCO2 of 104.6 and a PO2 of 67.1 with a bicarb of 28.2. BiPAP with an FiO2 of 35% RR of 12, BIPAP: 16/6 settings. Worsening blood gases to suggest worsening hypercapnia with CO2 narcosis with a last PCO2 of 123 and a pH of 7.0, Refractory to noninvasive positive pressure ventilation. I spoke extensively to the patient's daughter who is the DPOA her name Tiffany phone number [phone] who essentially wanted patient to be DNR and then due to the fact that she has a poor prognosis from a severe CO2 narcosis with the likelihood of her having neurocognitive deficits if she comes out of her CO2 narcosis would be slim. Patient was converted to comfort care measures. Updated status patient subsequently went into cardiac arrest as a result of severe hypoxemic/hypercapnic respiratory failure from suspected underlying acute opiate overdose. Patient was pronounced at 1855 by RN nurse station supervisor and myself. (2) Acute Opiate overdose with underlying opiate use disorder. Conclusion/Plan: With concomitant hypercapnia and altered mental status as it relates to 2/2 CO2 narcosis and opiate overdose. We will continue with plan as delineated by #1 with annie Leean and respecting patient's underlying wishes. Obtain palliative care consult for possible conversion of patient's CODE STATUS to DNR as the POA who is a daughter has been updated on patient's status. (3) Leukocytosis secondary to steroids given in the ED. Conclusion/Plan: Chest x-ray shows mild CHF with No acute consolidation noted however this would be difficult to ascertain. No fevers. We will continue to follow CBC. (4) NSVT on Tele secondary to hypoventilation and likely due to hypoxemia and ischemia to myocardium. (5) Diabetes mellitus, type II Conclusion/Plan: Accu checks. SSI prn, Placed on n.p.o. protocol insulin sliding scale. Hold metf ormin for now (6) Pulmonary fibrosis Conclusion/Plan: Chronic, Likely underlying risk factor which would make difficult intubation however it limited CODE STATUS with no intubation is on her POLST. (7) COPD (chronic obstructive pulmonary disease) Conclusion/Plan: Xopenex ordered prn, Was given Decadron in the ED will continue with Solu-Medrol at 60 mg IV q8. (9) Anxiety Conclusion/Plan: Previously On buspirone. We will hold for now (10) Hypertension Conclusion/Plan: On metoprolol and verapamil. Will place on IV hydralazine as needed with parameters. Will resume when verified (11) Hypothyroidism Conclusion/Plan: On levothyroid. Obtain TSH/free T4 T3 (12) Hyperlipidemia Conclusion/Plan: On pravastatin. Hold all meds for now due to n.p.o. status. (13) GERD (gastroesophageal reflux disease) Conclusion/Plan: IV Protonix for now. (14) Seizure Conclusion/Plan: On topamax. Patient with no seizure-like activity. (15) Polypharmacy: Conclusion/plan: Patient was on a combination of sedative agents to include buprenorphine, ahumada loperidol, Remeron, Risperdal, Topamax, which may have in combination synergistically caused iatrogenic induced encephalopathy but most importantly due to her pre-existing conditions of COPD pulmonary fibrosis which cause hypoventilation and therefore precipitating an acute hypoxemic hypercapnic respiratory failure. Will address all of medications from memory care unit and will alert once confirmed per (16) Bacteremia: Gram-positive cocci 1 bottle, Likely contaminant CODE STATUS: Patient has been transitioned now from DNR to comfort care john ures. Total critical care time: 30 minutes
[2018-07-09] MEDS ORDERED: hydrALAZINE INJ 20 MG/ML VIAL IVP PRN (11:36)
[2018-07-09] MEDS ORDERED: DEXTROSE 5%-0.9% NACL 1,000 ML IV SCH ×2 (12:00→16:00)
[2018-07-09] MEDS ORDERED: INSULIN REGULAR HUMAN 100 UNIT/1 ML 10 ML MDV SUBQ SCH (12:00)
[2018-07-09 12:19] LABS: ABG BASE EXCESS -5.4 mmol/L (-2.0-3.0); ABG HCO3 28.2 mmol/L (22.0-26.0); ABG OXYGEN SATURATION 89 % (94-98); ABG PO2 67 mmHg (80-100); ABG TCO2 31.4 MMOL/L (21.0-29.0); ALLEN TEST POSITIVE
[2018-07-09 12:21] LABS: ABG PCO2 105 mmHg (34-45); ABG PH 7.05 (7.35-7.45)
[2018-07-09] MEDS: INSULIN REGULAR HUMAN 100 UNIT/1 ML 10 ML MDV SUBQ SCH ×2 (12:38→18:03)
[2018-07-09] MEDS ORDERED: methylPREDNISolone SUCCINATE 40 MG/ML VIAL IVP SCH (14:00)
[2018-07-09] MEDS ORDERED: NON FORMULARY MED IVP SCH (14:00)
[2018-07-09 14:05] LABS: ABG HCO3 30.1 mmol/L (22.0-26.0); ABG PO2 113 mmHg (80-100)
[2018-07-09 14:06] LABS: ABG BASE EXCESS -4.5 mmol/L (-2.0-3.0); ABG OXYGEN SATURATION 97 % (94-98); ABG TCO2 33.9 MMOL/L (21.0-29.0); ALLEN TEST POSITIVE
[2018-07-09 14:08] LABS: ABG PCO2 124 mmHg (34-45)
[2018-07-09 14:14] VITALS: BP 126/79
[2018-07-09] MEDS ORDERED: LEVALBUTEROL 1.25 MG/3 ML NEB INH SCH (15:00)
[2018-07-09] MEDS ORDERED: GLYCOPYRROLATE 1 MG/5 ML VIAL SUBQ PRN (15:35)
[2018-07-09] MEDS ORDERED: ONDANSETRON 4 MG/2 ML VIAL IVP PRN (15:35)
[2018-07-09] MEDS ORDERED: LORazepam 100MG/100ML D5W 100 ML IV SCH (16:00)
--- NOTE | 2018-07-09 19:09 | DISCHARGE SUMMARY ---
Discharge Summary Admit Date: 07/09/18 Discharge Date: 07/09/18 Discharging Provider: Dr. Logn Primary Care Provider: Unknown Code Status: Do Not Attempt Resuscitation Condition at Discharge: Poor Discharge Facility Name: Not applicable - DIAGNOSES Admission Diagnoses: (1) Acute respiratory failure with hypoxia and hypercapnia (2) Altered mental status (3) Opiate overdose (4) Diabetes mellitus, type II (5) Pulmonary fibrosis (6) COPD (chronic obstructive pulmonary disease) (8) Anxiety (9) Hypertension (10) Hypothyroidism (11) Hyperlipidemia (12) GERD (gastroesophageal reflux disease) (13) Seizure Disorder Discharge Diagnoses with Status of Each Condition: (1) Acute respiratory failure with hypoxia and hypercapnia (2) Acute Opiate overdose with underlying opiate use disorder. (3) Leukocytosis secondary to steroids given in the ED. (4) NSVT on Tele secondary to hypoventilation and likely due to hypoxemia and ischemia to myocardium. (5) Diabetes mellitus, type II (6) Pulmonary fibrosis (7) COPD (chronic obstructive pulmonary disease) (9) Anxiety (10) Hypertension (11) Hypothyroidism (12) Hyperlipidemia (13) GERD (gastroesophageal reflux disease) (14) Seizure d/o (15) Polypharmacy (16) Bacteremia: Gram-positive cocci 1 bottle, Likely contaminant - HPI History of Present Illness: Patient is a 68 y/o female who was brought to the ED from the [facility]. It was reported that she was found hypoxic and unresponsive by staff there with an O2Sat of 70%. 2 hours later EMS was called. Upon their arrival she was found to have an O2Sat of 60%. Upon arrival patient was unresponsive so she was immediately placed on bipap. Here extremities were cold to touch and appeared cyanotic. Her O2Sat improved to 100% Patient's pupils were pin point and there was minimal response to tactile or verbal stimuli. She also had intermittent runs of VTach She had a POLST form which stated Limited resuscitation with CPR but no intubation. She had a narcan trial. He respiratory rate increased to the 30's and her pupils were more reactive to light. With a repeat of narcan, she was moving her arm and could turn her head towards a verbal stimuli. A urine drug screen done was positive for opiates. An ABG done showed a pH of 7.1 and pCO2 of 94. Patient has a history of laryngeal cancer, pulmonary fibrosis, COPD, CAD, DM2, hypothyroidism, dysphagia, seizures, hypertension, chronic back pain, anxiety, osteoporosis, lumbar radiculopathy, GERD and cystocele He daughter Portia Keller was contacted before lab results were back and she strongly cautioned against giving her any pain medication. She reported that the patients has a history of opiate dependence and uses laryngeal cancer diagnoses as an excuse and attempt to get pain medications from prescribers - HOSPITAL COURSE Hospital Course: Patient was admitted for acute hypoxemic hypercapnic respiratory failure secondary to opiate overdose for which she received buprenorphine as an outpatient and had initial improvements to ABGs however subsequently deteriorated despite BiPAP and medical management with a maxed Narcan drip. Patient did receive one dose of IV buprenorphine 0.3 mg IV x 1 for opiate withdrawals for which patient had confirmed with a nod to me, Sinus tachycardia as well as tremors to the bilateral upper extremities were seen. Patient family was at bedside and ultimately decided on DNR status and subsequently comfort care measures and was placed on Ativan drip for agonal breathing. Patient had arrested and 1855 pronounced . - ALLERGIES Allergies/Adverse Reactions: Allergies Allergy/AdvReac Type Severity Reaction Status Date / Time atorvastatin Allergy Unknown Verified 07/09/18 02:33 azithromycin Allergy Unknown Verified 07/09/18 02:33 doxycycline Allergy Unknown Verified 07/09/18 02:33 phenylalanine Allergy Anaphylaxis Verified 07/09/18 02:33 tolmetin Allergy Unknown Verified 07/09/18 02:33 - MEDICATIONS Home Medications: Ambulatory Orders Medication Instructions Recorded Confirmed Buspirone HCl 10 mg PO BID 02/22/18 07/09/18 Carboxymethylcellulose Sodium 1 drops QID PRN 02/22/18 07/09/18 [Refresh Tears] Levothyroxine Sodium [Synthroid] 150 mcg PO QDAC 02/22/18 07/09/18 Metoprolol Succinate [Toprol Xl] 25 mg PO DAILY 02/22/18 07/09/18 Mirtazapine 15 mg PO QPM 02/22/18 07/09/18 Nitroglycerin 0.4 mg SL PRN PRN 02/22/18 Ondansetron [Ondansetron Odt] 4 mg SL TID PRN 02/22/18 07/09/18 Pantoprazole [Protonix] 40 mg PO DAILY 02/22/18 07/09/18 Pravastatin Sodium [Pravachol] 20 mg PO QPM 02/22/18 07/09/18 Spironolactone 50 mg PO DAILY 02/22/18 07/09/18 Thiamine [Vitamin B-1] 100 mg PO DAILY 02/22/18 Topiramate [Topamax] 100 mg PO BID 02/22/18 07/09/18 Verapamil HCl [Calan] 120 mg PO TID 02/22/18 07/09/18 metFORMIN [Glucophage] 500 mg PO BIDWM 02/22/18 07/09/18 raNITIdine [Zantac] 150 mg PO QPM 02/22/18 07/09/18 Hydrocodone/Acetaminophen [[place] 1 each PO Q6H PRN #15 tablet 06/18/18 07/09/18 5-325 Tablet] Buprenorphine HCl 4 mg SL DAILY 07/09/18 Fluticasone 110 Mcg [Flovent] 07/09/18 Haloperidol Lactate [Haloperidol PO 07/09/18 Lactate (Oral soln bottle)] Ipratropium/Albuterol [Combivent 1 puffs INH QID PRN 07/09/18 07/09/18 Respimat] Isosorbide Mononitrate [Isosorbide 60 mg PO DAILY 07/09/18 07/09/18 Mononitrate ER] - PHYSICAL EXAM AT DISCHARGE General Appearance: positive: Other (Patient pronounced at 1855) Respiratory: positive: Other (No breathing) Cardiovascular: positive: Other (No heart rate or cardiac rhythm) - LABS Result Diagrams: 07/09/18 01:40 07/09/18 01:40 - SEPSIS Sepsis Criteria: WBC count greater than 12,000 or less than 4000 - QUALITY (Female Hip Fx Only) Was patient sent home on osteoporosis medication?: No () - FOLLOW UP Follow Up: Nonapplicable - TIME SPENT Time Spent in Discharge (Minutes): 35
== END 2018-07-09 23:00 | DRG 917 ==
LOC: EDUNIT# → ED 01:16 → ICU 05:22
PROVIDERS: ADMIT Internal Medicine; ATTEND Family Medicine
DX: R06.03 Acute respiratory distress (principal); T40.601A Poisoning by unspecified narcotics, accidental (unintentional), initial encounter; I25.10 Atherosclerotic heart disease of native coronary artery without angina pectoris; J96.02 Acute respiratory failure with hypercapnia; J96.01 Acute respiratory failure with hypoxia; G93.40 Encephalopathy, unspecified; Z85.21 Personal history of malignant neoplasm of larynx; I10 Essential (primary) hypertension; J44.9 Chronic obstructive pulmonary disease, unspecified; R41.82 Altered mental status, unspecified; J84.10 Pulmonary fibrosis, unspecified; G40.909 Epilepsy, unspecified, not intractable, without status epilepticus; C32.9 Malignant neoplasm of larynx, unspecified; E11.9 Type 2 diabetes mellitus without complications; K21.9 Gastro-esophageal reflux disease without esophagitis; D72.829 Elevated white blood cell count, unspecified; T38.0X5A Adverse effect of glucocorticoids and synthetic analogues, initial encounter; F41.9 Anxiety disorder, unspecified; E03.9 Hypothyroidism, unspecified; R13.10 Dysphagia, unspecified; M81.0 Age-related osteoporosis without current pathological fracture; G89.29 Other chronic pain; M54.9 Dorsalgia, unspecified; Z90.49 Acquired absence of other specified parts of digestive tract; F03.90 Unspecified dementia, unspecified severity, without behavioral disturbance, psychotic disturbance, mood disturbance, and anxiety; E78.00 Pure hypercholesterolemia, unspecified; F11.10 Opioid abuse, uncomplicated; E78.5 Hyperlipidemia, unspecified
CPT/HCPCS: 36415; 36600; 51702; 70360; 70450; 71045; 80048; 81001; 82803; 83605; 83735; 83880; 84100; 84439; 84443; 84484; 85025; 85610; 85730; 87040; 87077; 87086; 87150; 87181; 93005; 94660; 96374; 96375; 96376; 99284; 99285; J0592; J1815; 80306; 81003